=== PATIENT | male | born 1955 | race Caucasian/White ===

== ENCOUNTER 2020-07-22 15:17 | Inpatient (IN) | payer OTHER ==
[2020-07-22] VITALS (12 sets, daily range): BP systolic 90–127; BP diastolic 40–81
[~2020-07-22] VITALS: Ht 180.3 cm; Wt 65.3 kg
--- NOTE | 2020-07-22 15:17 | NUR ---
PT TO ROOM VIA EMS STRETCHER.
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
--- NOTE | 2020-07-22 15:56 | NUR ---
PATIENT STATES THAT HE DOES NOT TAKE ANY PRESCRIPTION MEDICATIONS ON A DAILY BASIS. IN HIS CHART FROM [facility] THERE IS LASIX 20 MG Q DAILY AND PROTONIX 40 MG Q DAILY.
[2020-07-22 16:03] LABS: MEAN CELL VOLUME 85.4 fL CALC (80.0-100.0); MEAN CORPUSCULAR HGB 24.6 pG CALC (26.0-32.0); MEAN CORPUSCULAR HGB CONC 28.8 g/dL CAL (32.0-36.0); NEUT# 8.07 thou/uL (1.82-7.42); RED BLOOD COUNT 2.81 mill/uL (4.70-6.10); RED CELL DISTRI WIDTH 15.8 % (11.5-15.5)
[2020-07-22 16:10] LABS: ALBUMIN 3.3 g/dL (3.2-5.0); BILIRUBIN, TOTAL 0.6 mg/dL (0.0-1.4); HEMOGLOBIN 6.9 g/dl (14.0-18.0); INTERNATIONAL NORMALIZED RATIO 1.2 RATIO (0.7-1.3); POTASSIUM 4.3 mmol/l (3.5-5.1); PROTHROMBIN TIME 12.1 SECONDS (9.0-12.5); TOTAL PROTEIN 7.8 g/dL (6.3-8.2)
[2020-07-22 16:13] LABS: CREATININE 9.2 mg/dL (0.7-1.3)
--- NOTE | 2020-07-22 16:30 | NUR ---
PT RESTING ON STRETCHER WITH GAURD AT BEDSIDE. BOTH WATCHING TV
--- NOTE | 2020-07-22 17:22 | NUR ---
IV FLUIDS INITIATED AND IS FLOWING INTO PATNET IV. PT DENIES ANY NEEDS
--- NOTE | 2020-07-22 18:00 | NUR ---
ATTEMTPTED TO GIVE REPORT AND STORE OPERATIONS ASSOCIATE STATES THAT NURSE IS BUSY WITH OTHER PTS AND WILL CALL BACK WHEN AVAILIABLE. CHARGE NURSE NOTIFIED
--- NOTE | 2020-07-22 19:15 | NUR ---
BEGAN TRANSFUSION, AT PT BEDSIDE FOR EVALUATION. VITALS STABLE
--- NOTE | 2020-07-22 19:30 | NUR ---
15 MINS OF OBSERVATIONS HAS CONCLUDED TO NO REACTIONS. PT MENTIONS MILD TENDERNESS AT IV SITE. NO SWELLING, NO REDNESS, VITALS STABLE AND HE DENIES ANY OTHER S/S. CALL LIGHT PLACED WITHIN REACH AND EDU ON S/S RUSTY ON WHAT TO REPORT. NOTIFIED. WILL CONTINUE TO MONITOR.
--- NOTE | 2020-07-22 19:45 | NUR ---
GAVE REPORT TO FELIX
--- NOTE | 2020-07-22 19:55 | NUR ---
PT TRANSPORTED TO ICU STABLE AND IN NO DISTRESS. PT CARE ASSUMED TO FELIX Admission Note Report Given to: FELIX Transported by: Wheelchair X Stretcher Transported with: X Nurse Transporter X Patent IV O2 X Financial Advisor Location: X ICU MS2
--- NOTE | 2020-07-22 19:55 | NUR ---
65 yr old white male admitted to icu 8 per stretcher from er. amb self to bed. bed weight obtained. pt said bed weight "is more than i weighed out there." pt said he weighed 124 lbs @ the facility. blood infusing per rt hand site. court recording monitor shows sinus rhythm pvcs hr 74. history obtained per pt & er record. oriented to room. fall & air/contact precautions initiated. guard x1 @ bedside. pt said he had poor appetite x4 days, had lost 10 lbs in 2 weeks d/t "heartburn." requested food. denies heartburn @ present. no active bleeding. pudding, jello & apple juice x2 given.
--- NOTE | 2020-07-22 21:50 | NUR ---
#1 unit blood infused.
--- NOTE | 2020-07-22 22:30 | NUR ---
pt requested crackers. mirella crackers & saltines given.
--- NOTE | 2020-07-22 22:45 | NUR ---
#2 unit blood began.
[2020-07-23] VITALS (15 sets, daily range): BP systolic 71–139; BP diastolic 43–78
--- NOTE | 2020-07-23 00:01 | NUR ---
watching tv. no c/o voiced. guard x1 @ bedside.
--- NOTE | 2020-07-23 00:54 | NUR ---
#2 unit blood infused.
--- NOTE | 2020-07-23 02:00 | NUR ---
eyes closed. nad. special education paraeducator shows sinus rhythm hr 65.
--- NOTE | 2020-07-23 04:00 | NUR ---
eyes closed. no distress. guard x1 @ bedside.
--- NOTE | 2020-07-23 05:30 | NUR ---
lab here. blood drawn
[2020-07-23 05:55] LABS: HEMATOCRIT 25.1 % (39.0-50.0); HEMOGLOBIN 7.6 g/dl (14.0-18.0); IMMATURE GRANULOCYTES 0.6 % (0.0-5.0); MEAN CELL VOLUME 85.1 fL CALC (80.0-100.0); MEAN CORPUSCULAR HGB 25.8 pG CALC (26.0-32.0); MEAN CORPUSCULAR HGB CONC 30.3 g/dL CAL (32.0-36.0); NEUT# 7.73 thou/uL (1.82-7.42); RED BLOOD COUNT 2.95 mill/uL (4.70-6.10); RED CELL DISTRI WIDTH 15.4 % (11.5-15.5)
--- NOTE | 2020-07-23 06:00 | NUR ---
voided per urinal. urine spec sent to lab.
[2020-07-23 06:18] LABS: POTASSIUM 4.9 mmol/l (3.5-5.1)
[2020-07-23 06:26] LABS: URINE BILIRUBIN - DIPSTICK NEGATIVE (NEGATIVE); URINE BLOOD DIPSTICK LARGE (NEGATIVE); URINE COLOR YELLOW; URINE GLUCOSE - DIPSTICK NEGATIVE (NEGATIVE); URINE KETONE NEGATIVE (NEGATIVE); URINE LEUK ESTERASE NEGATIVE (NEGATIVE); URINE NITRITE - DIPSTICK NEGATIVE (Negative); URINE PROTEIN - DIPSTICK 30 mg/dL (NEG-TRACE); URINE SPECIFIC GRAVITY 1.025; URINE UROBILINOGEN - DIPSTICK 0.2 E.U./dL (0.2)
[2020-07-23 06:36] LABS: CREATININE 9.1 mg/dL (0.7-1.3)
[2020-07-23 06:42] LABS: URINE BACTERIA FEW hpf; URINE COARSE GRANULAR CAST FEW lpf; URINE RBC 50-100 RBC/hpf (0-5); URINE SQUAMOUS EPITHELIAL CELL FEW EPI/hpf (0-FEW)
--- NOTE | 2020-07-23 07:37 | NUR ---
PT SITTING IN BED. A&O X3 WITH ONE GUARD AT BEDSIDE. NO DISTRESS NOTED. PT C/O GENERALIZED PAIN, STATES FACILITY HAS NOT BEEN "DOING ANYTHING ABOUT IT". BP READING LOW THIS MORNING ON MONITOR, BP MANUALLY TAKEN 90/78. NO CURRENT DISTRESS AT THIS TIME. EXPLAINED TO PT TO CALL WHEN HE URINATES DUE TO LOW URINE OUTPUT REPORTED BY PREVIOUS SHIFT, BLADDER SCAN WILL PREFORMED IF NEEDED. DR OHARA TO BE CALLED FOR CONSULT. NO OTHER NEEDS AT THIS TIME. ASSESSMENT COMPLETED. DISCUSSED POC. CALL LIGHT IN REACH. CONTINUE TO MONITOR.
--- NOTE | 2020-07-23 11:00 | NUR ---
DR GRANADOS NOTIFIED OF PTS CARDIAC RHYTHM CHANGE. EKG OBTAINED. ORDERS TO TRANSFER PT TO [place] FOR FURTHER CARDIAC AND NEPHROLOGY EVALUATION.
--- NOTE | 2020-07-23 11:04 | NUR ---
[facility] CALLED TO INTIATE TRANSFER.
--- NOTE | 2020-07-23 11:10 | NUR ---
CALLED DR. OHARA REGARDING CONSULTATION FOR THIS PT.
--- NOTE | 2020-07-23 11:15 | NUR ---
COVID SAMPLE OBTAINED. SPECIMEN LABELED AND SENT TO LAB.
--- NOTE | 2020-07-23 11:30 | NUR ---
PT INFORMED OF UPDATED POC. PT VERBALIZED UNDERSTANDING. TRANSFER ORDER SIGNED.
--- NOTE | 2020-07-23 14:00 | NUR ---
iv to rfa flushed and patent; no redness or edema noted at site; levophed gtt initiated at 8mcg/min;
--- NOTE | 2020-07-23 14:38 | NUR ---
SPOKE TO KEHSIA WITH [facility], UPDATED ON COVID NEGATIVE RESULTS. RESULTS FAXED TO [facility].
--- NOTE | 2020-07-23 14:58 | NUR ---
ROOM NUMBER OBTAINED BY KESHIA JETER CALLED WITH UPDATED INFORMATION. PER [employer] [place] STEFFANY ETA IS 30 MIN. PT AND GUARD UPDATED ON ESTIMATED ETA
--- NOTE | 2020-07-23 16:03 | NUR ---
ASSISTED PT TO MEDICAL TRANSPORT STRETCHER. PT IN STABLE CONDITION. LEVOPHED INFUSING AT 10 MCG/MIN.
--- NOTE | 2020-07-23 16:20 | NUR ---
REPORT GIVEN TO AYLIN AYALA AT [facility]
--- NOTE | 2020-07-23 16:24 | NUR ---
UPDATED REPORT OF PTS TRANSPORT AND CONDITION GIVEN TO [facility]CI NURSE KINJAL.
== END 2020-07-23 16:03 | disposition short-term general hospital (02) | DRG 811 ==
LOC: ED 15:17 → ED-I 16:26 → ED 16:36 → ICU 16:37
PROVIDERS: Emergency Medicine; ADMIT Internal Medicine; ATTEND Internal Medicine
PROC: 30233N1 Transfusion of Nonautologous Red Blood Cells into Peripheral Vein, Percutaneous Approach (ICD-10-PCS; principal; 2020-07-22)
PROC: 30233N1 Transfusion of Nonautologous Red Blood Cells into Peripheral Vein, Percutaneous Approach (ICD-10-PCS; 2020-07-22)
DX: D64.9 Anemia, unspecified (principal); N17.0 Acute kidney failure with tubular necrosis; E87.1 Hypo-osmolality and hyponatremia; E87.2 Acidosis; R00.1 Bradycardia, unspecified; I95.9 Hypotension, unspecified; E86.9 Volume depletion, unspecified; I48.91 Unspecified atrial fibrillation; I50.9 Heart failure, unspecified; J43.9 Emphysema, unspecified; R31.9 Hematuria, unspecified; Z20.828 Contact with and (suspected) exposure to other viral communicable diseases
CPT/HCPCS: P9016